=== PATIENT | female | born 1965 | race Caucasian/White ===

== ENCOUNTER 2020-06-22 07:07 | Outpatient (CLI) | payer OTHER | END 2020-06-22 08:14 | disposition home or self-care (01) | LOC: NUCLEAR 07:07 | PROVIDERS: ATTEND Physical Medicine & Rehabilitation | DX: E05.90 Thyrotoxicosis, unspecified without thyrotoxic crisis or storm (principal); E04.1 Nontoxic single thyroid nodule | CPT/HCPCS: 78012; A9531 ==

== ENCOUNTER 2020-06-23 08:46 | Outpatient (CLI) | payer OTHER | END 2020-06-23 09:09 | disposition home or self-care (01) | LOC: NUCLEAR 08:46 | PROVIDERS: ATTEND Physical Medicine & Rehabilitation | DX: E05.90 Thyrotoxicosis, unspecified without thyrotoxic crisis or storm (principal) | CPT/HCPCS: 78012; A9531 ==

== ENCOUNTER 2021-03-21 07:39 | Outpatient (CLI) | payer OTHER | END 2021-03-21 07:51 | disposition home or self-care (01) | LOC: MRI 07:39 | PROVIDERS: ATTEND Obstetrics & Gynecology | DX: D25.1 Intramural leiomyoma of uterus (principal); R10.2 Pelvic and perineal pain; R10.10 Upper abdominal pain, unspecified | CPT/HCPCS: 72197 ==